=== PATIENT | male | born 2000 | race Two or more races ===

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

== ENCOUNTER 2022-02-08 15:30 | Outpatient (RCR) | payer OTHER, SELFPAY ==
--- NOTE | 2022-01-11 11:45 | PTOPEVAL ---
PHYSICAL THERAPY INITIAL EVALUATION. Thank you for referring Tobias Aranda to [facility].? The patient is scheduled to be seen for therapy? 2x/week for 4 weeks. Please review, sign, date and return this plan of care MADYSON. I agree with and certify that the following plan of care is medically necessary. Referring Physician Date Attending Provider: Derrek Guajardo MD *PT Outpatient Evaluation Start: 01/11/22 Evaluation Information Diagnosis Left shoulder pain Onset 1 month Subjective Information Pt states for about the last Query Text:As Reported By Patient/ month his left shoulder has Family been hurting, within the last week his right shoulder has started to hurt. He reports no known mechanism of injury, he states he did leg exercises the day before his shoulder started to hurt. He states he goes to the [employer] 5-6 days a week. He reports equal time working on chest/arms when compared to back/shoulders. Pt reports no pain at rest, slight pain with unweighted movements, and the most pain when he is exercising. Pain Assessment Self Report Pain Assessment Right Shoulder(s) Reported Pain Level 0 Pain Description Sharp Pain Frequency Acute,Intermittent Lowest Pain Intensity 0 Greatest Pain Intensity 7 Left Shoulder(s) Reported Pain Level 0 Pain Description Aching Pain Frequency Acute,Intermittent Lowest Pain Intensity 0 Greatest Pain Intensity 7 Upper Extremity Range of Motion Right Shoulder Flexion - Active 135 Shoulder Flexion - Passive 160 Shoulder Abduction - Active 140 Shoulder Medial Rotation - Passive 70 Shoulder Medial Rotation - Active T6 Shoulder Lateral Rotation - Active 80 Shoulder Lateral Rotation - Active T2 Left Shoulder Flexion - Active 140 Shoulder Flexion - Passive 160 Shoulder Abduction - Active 148 Shoulder Medial Rotation - Passive 70 Shoulder Medial Rotation - Active T4 Shoulder Lateral Rotation - Passive 80 Shoulder Lateral Rotation - Active T4 Upper Extremity Muscle Strength Testing Bilateral Shoulder Elevation - Upper Trapezius 5 Normal Shoulder Flexion Strength 4- Good - Shoulder Abduction Strength 4- Good - Shoulder Medial Rotation Strength 4+ Good + Shoulder Lateral Rotation Strength 4 Good Muscle Length Testi
--- NOTE | 2022-02-08 16:12 | PTOPEVAL ---
PHYSICAL THERAPY PROGRESS REPORT AND DISCHARGE NOTE. Thank you for referring Tobias Aranda to [facility].? The patient is scheduled to be discharged from skilled physical therapy services at this time. Please review, sign, date and return this plan of care MADYSON. I agree with and certify that the following plan of care is medically necessary. Referring Physician Date Attending Provider: Derrek Guajardo MD Evaluation Information Diagnosis Left shoulder pain Onset 2 month Subjective Information Pt states his shoulder is Query Text:As Reported By Patient/ doing pretty well. He states Family he is working out at about 80% of his previous capacity with only a little bit of discomfort. Pt states he will get some shoulder pain when his is doing bench press. He states this is about a 4/10, he reports only muscle soreness at rest. Pain Assessment Reported Pain Level 0 Pain Description Soreness Greatest Pain Intensity 4 Upper Extremity Range of Motion Scapular/ Shoulder Range of Motion Right Shoulder Flexion - Active 142 Shoulder Flexion - Passive 180 Shoulder Abduction - Active 140 Shoulder Medial Rotation - Passive 70 Shoulder Medial Rotation - Active T6 Shoulder Lateral Rotation - Active 80 Shoulder Lateral Rotation - Active T2 Left Shoulder Flexion - Active 155 Shoulder Flexion - Passive 180 Shoulder Abduction - Active 148 Shoulder Medial Rotation - Passive 70 Shoulder Medial Rotation - Active T4 Shoulder Lateral Rotation - Passive 80 Shoulder Lateral Rotation - Active T4 Upper Extremity Muscle Strength Testing Bilateral Shoulder Elevation - Upper Trapezius 5 Normal Shoulder Flexion Strength 4+ Good + Shoulder Abduction Strength 4+ Good + Shoulder Medial Rotation Strength 5 Normal Shoulder Lateral Rotation Strength 5 Normal Posture Posture Evaluation View Posterior Shoulder Posture Neutral Scapula Posture (L) Neutral,(R) Neutral Palpation Assessment Palpation none Special Tests-Upper Extremity Shoulder Special Tests Empty Can (supraspinatus) Test Negative Left,Negative Right Drop Arm Test Negative Left,Negative Right Speed's Test Negative Left,Negative Right Hawkin's Toni Test Negative Left,Negative Right Lift Off Test Negative Left,Negative Right PT Clinical Summary Tobais presents to therapy today for his progress report following 7 visits of therapy
== END 2022-02-09 11:21 | disposition home or self-care (01) ==
LOC: ANHPT 15:30
PROVIDERS: PCP Pediatrics; Visit Provider Emergency Medicine
DX: M25.512 Pain in left shoulder (principal)
CPT/HCPCS: 97110; 97112; 97140; 97161

== ENCOUNTER 2022-10-07 15:00 | Emergency (ER) | payer OTHER, SELFPAY ==
--- NOTE | 2022-10-07 15:08 | ED.URI ---
HPI - URI/Sore Throat General Chief Complaint: Upper Respiratory Infection Stated Complaint: sore throat, bodyaches, headache Time Seen by Provider: 10/07/22 15:10 Source: patient and RN notes reviewed Mode of arrival: ambulatory Limitations: no limitations History of Present Illness HPI Narrative: 22-year-old male for sore body aches started yesterday. He denies fever, chills sweats, cough, shortness of breath. Reports some rhinorrhea. Denies headache, nausea, vomiting MD elicited complaint: sore throat Related Data Allergies Allergy/AdvReac Type Severity Reaction Status Date / Time No Known Drug Allergies Allergy Mild Other Unverified 10/07/22 15:09 Review of Systems Review of Systems: CONSTITUTIONAL: Denies malaise, chills, sweats, or fever. EYES: Denies visual changes, redness, or discharge. ENT: Reports rhinorrhea, sore throat. Denies congestion, sinus pain, otalgia CARDIOVASCULAR: Denies chest pain, palpitations, or edema. RESPIRATORY: Denies cough. Denies dyspnea. GASTROINTESTINAL: Denies abdominal pain, nausea, vomiting, diarrhea SKIN: Denies rash or itching. MUSCULOSKELETAL: Reports myalgia. NEUROLOGIC: Denies headache. All systems reviewed & are unremarkable except as noted in HPI and below PMFSH Comments At time of signature, agree with nursing past medical, surgical, social and family history. There is no relevant family history pertinent to the presenting complaint Exam Narrative: GENERAL: Well-appearing, well-nourished, and in no acute distress. HEAD: Normocephalic EYES: PERRLA, conjunctivae clear ENT: Nares clear, clear discharge. Mucous membranes moist. TM pearly guzman with sharp light reflex bilaterally; no tragal tenderness. Oropharynx erythematous without lesions. Tonsils not enlarged and without exudate, no drooling, no hoarseness, no trismus, uvula midline. NECK: Supple. No lymphadenopathy CHEST: Clear to auscultation, breath sounds equal. No wheezing, rhonchi, rales, or stridor. No respiratory distress, speaks in full sentences. HEART: Regular rate and rhythm. No murmur heard. SKIN: Warm, dry, no rash. NEURO: Alert and oriented x3. PSYCH: Normal mood and affect Course Course Emergency Course: Patient is aware of diagnosis, understands and agrees to treatment plan. Anticipatory guidance given. Patient agrees to follow-up as directed and is aware of reasons to seek care at the emergency department. Portions of this record may have been created with voice recognition software Level of Care: Express Care Visit Vital Signs Vital signs: Reviewed. MDM - URI/Sore Throat MDM Narrative Medical decision making narrative: Differential diagnosis considered: Allison virus, strep pharyngitis, allergic rhinitis, upper respiratory tract infection, sinusitis, rhinosinusitis, nasopharyngitis. viral pharyngitis, otitis media, otitis externa, pneumonia, bronchitis, viral cough syndrome, viral syndrome, and influenza. Exam findings show no acute concerns or changes; patient is non-toxic appearing and is in no distress. Patient is appropriate for outpatient treatment and follow-up. Lab Data Attestation: I reviewed the patient's lab results. Critical Care Time Critical Care Time Critical Care Time: No Discharge Plan Discharge Clinical Impression: Upper respiratory infection Patient Disposition: Home, Self-Care Condition: Stable Instructions: Upper Respiratory Infection (ED) Additional Instructions: A throat culture will be sent to the laboratory for further testing. If the test is positive, you will receive a phone call within 48 hours and an appropriate antibiotic will be initiated at that time. Your symptoms are likely due to a viral illness, which is not treated with antibiotics. Viral symptoms can be present for up to a few weeks. -Alternate Tylenol and Motrin per package directions for fever or pain. -Antihistamine medication such as Benadryl at night and Zyrtec-D during the day can help
[2022-10-07 15:09] VITALS: BP 144/82; PULSE 71; RESP 16; TEMP 36.1; O2SAT 100
== END 2022-10-07 15:25 | disposition home or self-care (01) ==
PROVIDERS: Emergency Provider Nurse Practitioner; PCP Emergency Medicine
DX: J06.9 Acute upper respiratory infection, unspecified (principal)
CPT/HCPCS: 87081; 99213; G0463

== ENCOUNTER 2022-10-21 15:38 | Outpatient (CLI) | payer OTHER, SELFPAY ==
--- NOTE | ~2022-10-21 | XR_ITS ---
EXAMINATION: XR shoulder LT min 2V DATE: 10/21/2022 16:06 INDICATION: Left shoulder pain. TECHNIQUE: 4 views of left shoulder were obtained. COMPARISON: None. FINDINGS: Bone alignment is normal. No fracture. The glenohumeral joint is normal. There is mild acro mioclavicular joint osteoarthritis. IMPRESSION: 1. Mild left acromioclavicular joint osteoarthritis. Reviewed, dictated and finalized at location A. H [employer]ER
--- NOTE | ~2022-10-21 | XR_ITS ---
EXAMINATION: XR AC joint BI DATE: 10/21/2022 16:06 INDICATION: Left shoulder pain. TECHNIQUE: Anteroposterior views of the bilateral acromioclavicular joints without and with weights f or a total of 4 views were obtained. COMPARISON: None. FINDINGS: Bone alignment is normal. No fracture. There is mild osteoarthritis of the acromioclavicula r joints bilaterally. IMPRESSION: 1. Mild osteoarthritis of the acromioclavicular joints. Reviewed, dictated and finalized at location A. OL CAFETERIA COOK
== END 2022-10-21 15:39 | disposition home or self-care (01) ==
PROVIDERS: PCP Emergency Medicine; Visit Provider Emergency Medicine
DX: M25.512 Pain in left shoulder (principal); M19.012 Primary osteoarthritis, left shoulder; M19.011 Primary osteoarthritis, right shoulder
CPT/HCPCS: 73030; 73050

== ENCOUNTER 2022-11-23 15:30 | Outpatient (RCR) | payer OTHER, SELFPAY ==
--- NOTE | 2022-10-27 16:36 | PTOPEVAL1 ---
Assessment and note entered by Amanuel Boland, PT Evaluation Information Assessment Status Evaluation Diagnosis L shoulder pain Onset about a week ago Subjective Information Patient reports he was doing his workout and during a bench press he felt pain in the L shoulder as he was placing the rn bariatric on the rack. The pain was severe, but since then and now has been reduced to mild. He reports he was unable to take off his shirt without pain, now he can do without issue. Some exercises he does still bother him and he can pinpoint where it hurts. (the AC joint) also he feels like it is not in good position sometimes. Reported Pain Level Pain Score 2: Self Report Additional Pain Score Comments Reports was using IBU, but has not for a day or two. Assessment PT Clinical Summary Tobias is a 22 year old male coming into the clinic for L shoulder pain. Has S/S of infraspinatus strain which should recover well with minimal effort. Patient showed therapist his exercise routine and therapist instructed the patient that it is not a good idea to do any exercises to fatigue as form will suffer and it will cause more of these incidents. Gave exercises to work on scapular stabilizers and will continue to see patient to rehab infraspinatus and work on form with his other exercises. Manual and modalities as needed. Plan of Care Interventions Electrical Stimulation,Hot Pack/Cold Pack,Manual Therapy,Neuro Re-education,Patient/Caregiver Education,Therapeutic Activities,Therapeutic Exercise,Ultrasound Other Interventions taping PT Services Indicated Yes Treatment Frequency and 1 times a week for 4 weeks Duration These treatments will address the objective and functional deficits as defined above. The patient will be advanced safely and appropriately in order for the patient to progress towards his/her prior level of function. Additional exercises will be introduced and as well as a comprehensive home exercise program upon discharge, if needed, ?to ensure carryover of functional gains achieved in the clinic. This treatment plan has been reviewed and agreement upon by the patient.
--- NOTE | 2022-11-23 16:10 | PTOPDC ---
Assessment and note entered by Amanuel Boland, PT Evaluation Information Assessment Status Discharge Diagnosis Pain in left shoulder Onset about a week ago Subjective Information Patient reports he is not feeling pain at rest, pain felt when falling asleep on the L shoulder of 4/10. Has been holding off on overhead lifting ( Physical therapist gave okay to start, but reminders to not do anything to exhaustion.). Reported Pain Level Pain Score 0: Self Report Additional Pain Score Comments 4/10 worst this last week, did not stay in pain long. Assessment PT Clinical Summary Tobias has been coming to the clinic for 4 visits to deal with L shoulder pain. The patient has met all goals besides he still has mild pain with lying on the L shoulder. Has full strength and a negative lift test. Still needs to work on posture and not count on taping for a biofeedback. Patient also was asking about R knee pain that did not turn up any positive special tests for meniscal, MCL, LCL, ACL, or PCL injuries. Could potentially be a duke's cyst. Patient okay with discharge from skilled physical therapy. Plan of Care PT Services Indicated No Treatment Frequency and Discharged from skilled physical therapy. Duration
== END 2023-01-10 08:47 | disposition home or self-care (01) ==
LOC: ANHPT 15:30
PROVIDERS: PCP Emergency Medicine; Visit Provider Emergency Medicine
DX: M25.512 Pain in left shoulder (principal)
CPT/HCPCS: 97110; 97140; 97161

== ENCOUNTER 2023-02-08 12:44 | Outpatient (CLI) | payer OTHER, SELFPAY ==
--- NOTE | ~2023-02-08 | XR_ITS ---
EXAMINATION: XR fl inj shoulder LT - MR/CT DATE: 02/08/2023 14:02 INDICATION: Left shoulder pain TECHNIQUE: A time-out was performed to verify the patient's name, date of , and procedure to b e performed. The procedure including the risks, benefits, and alternatives was discussed with the pat ient. Risks discussed included bleeding and infection. The patient understood the risks and agreed to proceed. The skin overlying the rotator cuff interval of the left glenohumeral joint was prepped an d draped in usual sterile fashion. Anesthetic was administered with 1% lidocaine subcutaneously. A 22 G needle was advanced under fluoroscopic guidance into the joint. Injection of 1 mL of Omnipaque 240 confirmed intra-articular position of the needle. Subsequently, injectate consisting of 12 mL of 2:1:1 mixture of sterile saline:Omnipaque 240:1% lidocaine mixed 200:1 with 529 mg/mL Multihance barbara olinium contrast was injected with intra-articular position confirmed with intermittent fluoroscopy. The needle was removed and the entry site was cleaned and dressed. There were no immediate complicat ions. Fluoroscopy exposure time was 0.3 minutes. The total number of images was 147. FINDINGS: Real-time fluoroscopy demonstrates the needle in the left glenohumeral joint. IMPRESSION: 1. Successful left glenohumeral joint injection of dilute gadolinium contrast mixture subsequent MRI arthrogram which will be dictated separately. Reviewed, dictated and finalized at location A. IMPRESSION: 1. Successful left glenohumeral joint injection of dilute gadolinium contrast m ixture subsequent MRI arthrogram which will be dictated separately.
--- NOTE | ~2023-02-08 | MR_ITS ---
EXAMINATION: MR shoulder LT w con DATE: 02/08/2023 14:32 INDICATION: Left shoulder pain TECHNIQUE: Magnetic resonance imaging (MRI) of the left shoulder was performed following intra-artic ular gadolinium contrast injection and without intravenous contrast. Details of the glenohumeral join t injection have been dictated separately. Sequences included axial T2-weighted FS FSE, axial T1-mishel ghted FS FSE, coronal oblique T1-weighted FS FSE, coronal oblique T2-weighted FSE, sagittal T2-weight ed FS FSE, sagittal T1-weighted FSE, and ABER (abduction external rotation) T1-weighted FS FSE. COMPARISON: Radiographs dated 10/21/2022 FINDINGS: Coracoacromial arch: The acromion undersurface is minimally curved in morphology (type I-II). The coracoacromial ligament is normal. There is irregular cortical contour along the anterior and superior articular surface of t he distal clavicle with underlying marrow edema. The juxtaposed acromion appears normal. 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 Rotator cuff: The supraspinatus, infraspinatus and teres minor are normal. The subscapularis is normal. Normal rota tor cuff muscle bulk and signal. Biceps tendon, glenoid labrum and glenohumeral cartilage: Long head of the biceps tendon is intact. Glenoid labrum is normal. Glenohumeral cartilage is normal. Bones and other: Aside from subarticular marrow edema at the lateral head of the clavicle there is normal marrow signa l. No fracture or pathologic marrow replacing process. No abnormal fluid signal in the subacromial/tam bdeltoid bursa to suggest bursitis. IMPRESSION: 1. Isolated subarticular edema and irregularity of the overlying articular cortex at the lateral head of the clavicle with normal appearance to the juxtaposed acromion. Per discussion with the patient, the symptoms began after bench pressing but without a single discrete inciting traumatic event. Both the imaging findings and the provided clinical history would be most consistent with distal clavicula r osteolysis which can be seen in the setting of chronic microtrauma classically described with weigh t lifting. 2. Otherwise normal left shoulder MRI arthrogram with normal rotator cuff, biceps tendon, labrum and cartilage. Reviewed, dictated and finalized at location A. IMPRESSION: 1. Isolated subarticular edema and irregularity of the overlying articular aubree ex at the lateral head of the clavicle with normal appearance to the juxtaposed acromion. Per discussion with the patient, the symptoms began after bench pres sing but without a single discrete inciting traumatic event. Both the imaging f indings and the provided clinical history would be most consistent with distal clavicular osteolysis which can be seen in the setting of chronic microtrauma c lassically described with weight lifting. 2. Otherwise normal left shoulder MRI arthrogram with normal rotator cuff, sal ps tendon, labrum and cartilage.
== END 2023-02-08 12:45 | disposition home or self-care (01) ==
LOC: ANHIMG 12:50
PROVIDERS: PCP Emergency Medicine; Visit Provider Orthopaedic Surgery
DX: M25.512 Pain in left shoulder (principal); R60.9 Edema, unspecified
CPT/HCPCS: 23350; 73222; A9577; Q9966

== ENCOUNTER 2023-05-30 11:00 | Outpatient (RCR) | payer OTHER, SELFPAY ==
--- NOTE | 2023-05-05 10:10 | OPREHPOC ---
Outpatient Therapy Plan of Care This is a Multidisciplinary Plan of Care that may contain components documented by all disciplines (PT, OT, and ST.) PT Problem 1 PT Problem #1 Knowledge Deficit PT Goal 1 Goal [place] with HEP Target Visit 6 PT Problem 2 PT Problem #2 Impaired Strength PT Goal 1 Goal 5/5 ANJALI serratus anteriors and lower traps. Target Visit 6 PT Problem 3 PT Problem #3 Pain PT Goal 1 Goal decrease pain to 2/10 after lifting Target Visit 6
--- NOTE | 2023-05-05 10:10 | PTOPEVAL1 ---
Assessment and note entered by Amanuel Boland, PT Evaluation Information Assessment Status Evaluation Diagnosis L distal clavicular osteolysis Subjective Information Patient reports that he is having issues doing any weight lifting that requires a pushing motion from his L shoulder. He can do rows, biceps curls, and lat pull downs, but not do shoulder presses or bench presses without pain. Patient also feels like when he is walking sometimes his L shoulder blade will not be stable and feel erratic requiring him to adjust his posture multiple times while walking. Patient has come to this clinic twice for similar situations and has received injections he feels does not help him. Assessment PT Clinical Summary Mr. Aranda is a 22 year old male coming into the clinic with a diagnosis of L distal clavicular osteolysis. Patient has no significant decrease in range of motion or strength compared to the R side. Some decreased scapular strength and self reported decreased proprioception of the scapula. Physical therapy will work with the patient to improve scapular stabilization and biofeedback. Along with education and construction of a exercise routine that will work for the patient's goals while minimizing pain in the L shoulder. Plan of Care Interventions Electrical Stimulation,Gait Training,Hot Pack/Cold Pack,Manual Therapy,Neuro Re-education,Patient/ Caregiver Education,Therapeutic Activities, Therapeutic Exercise,Ultrasound Other Interventions taping, cupping, IASTM PT Services Indicated Yes Treatment Frequency and 1-2X/wk for 4 weeks Duration These treatments will address the objective and functional deficits as defined above. The patient will be advanced safely and appropriately in order for the patient to progress towards his/her prior level of function. Additional exercises will be introduced and as well as a comprehensive home exercise program upon discharge, if needed, ?to ensure carryover of functional gains achieved in the clinic. This treatment plan has been reviewed and agreement upon by the patient.
--- NOTE | 2023-05-30 11:59 | PTOPDC ---
Assessment and note entered by Amanuel Boland, PT Evaluation Information Assessment Status Evaluation Diagnosis L shoulder pain, osteolysis acromial clavicle Subjective Information Patient reports he still gets pain, but his scapula feels in a better position and is controlled better. Also reports he is doing some push exercises with low weight and high reps without pain. Reported Pain Level Pain Score 0: Self Report Additional Pain Score Comments currently no pain, but reports his pain can get up to a 7/10 when he sleeps on his shoulder wrong. Assessment PT Clinical Summary Mr. Aranda is a 22 year old male coming into the clinic with L shoulder pain and osteolysis acromial clavicle. He has met his scapular strengthening goal, but not his pain goal. Patient feels fine being discharged working on his HEP. Plan of Care PT Services Indicated No
== END 2023-05-30 13:11 | disposition home or self-care (01) ==
LOC: ANHPT 11:00
PROVIDERS: PCP Emergency Medicine; Visit Provider Orthopaedic Surgery
DX: M25.512 Pain in left shoulder (principal); M89.512 Osteolysis, left shoulder; G89.29 Other chronic pain
CPT/HCPCS: 97110; 97112; 97161

== ENCOUNTER 2024-02-28 06:02 | Emergency (ER) | payer OTHER, SELFPAY ==
[2024-02-28 06:02] VITALS: BP 145/84; PULSE 82; RESP 14; TEMP 37.3; O2SAT 99
[2024-02-28 06:47] LABS: Strep Group A RT-PCR NOT DETECTED (Negative)
[2024-02-28 06:58] LABS: Influenza A QL RT-PCR Negative (Negative); Influenza B QL RT-PCR Negative (Negative); RSV RNA, RT-PCR Negative (Negative); SARS-CoV-2 RNA PCR Negative (Negative)
--- NOTE | 2024-02-28 07:43 | ED.FEVER ---
HPI - Fever General Chief Complaint: Fever Stated Complaint: throat pain, fever Time Seen by Provider: 02/28/24 06:54 History of Present Illness HPI Narrative: 23-year-old male presenting emergency department for evaluation of sore throat. Patient states he began having a sore throat on Tuesday and began having a low-grade fever on Tuesday. Patient states the fever was as high as 100.6. Patient has been taking Tylenol for fever control. States the Tylenol has not helped throat. Patient denies any sick contacts seasonal allergies or postnasal drip. Related Data Allergies Allergy/AdvReac Type Severity Reaction Status Date / Time No Known Drug Allergies Allergy Mild Other Unverified 10/07/22 15:09 Review of Systems Review of Systems: All systems reviewed & are unremarkable except as noted in HPI and below Exam Narrative: APPEARANCE: Well appearing, no pain, no distress, well-nourished. HEAD: normocephalic, atraumatic. EYES: PERRLA/EOMI, conjunctivae clear. NOSE: Normal no drainage EARS:TMS clear with good light reflex. THROAT: Normal posterior pharynx no exudate, no erythema, no swelling, no peritonsillar abscess and no retropharyngeal abscess or swelling NECK: Supple. No adenopathy, no masses. RESPIRATORY: Airway patent, respirations nonlabored. Clear to auscultation bilaterally, no rales, rhonchi, wheezing. CARDIOVASCULAR: Regular rate and rhythm without murmurs rubs or gallops. ABDOMINAL: Soft, nontender, nondistended, normal bowel sounds MUSCULOSKELETAL: Moves all extremities. Strength/ROM intact, No edema, No calf tenderness. NEURO: Alert. Cranial nerves II through XII intact. Grossly intact SKIN: Warm, dry. Normal Color Course Vital Signs Vital signs: Vital Signs Temperature 99.2 F 02/28/24 06:02 Pulse Rate 82 02/28/24 06:02 Respiratory Rate 14 02/28/24 06:02 Blood Pressure 145/84 H 02/28/24 06:02 Pulse Oximetry 99 02/28/24 06:02 Oxygen Delivery Room Air 02/28/24 06:02 Temperature 99.2 F 02/28/24 06:02 Pulse Rate 82 02/28/24 06:02 Respiratory Rate 14 02/28/24 06:02 Blood Pressure 145/84 H 02/28/24 06:02 Pulse Oximetry 99 02/28/24 06:02 Oxygen Delivery Room Air 02/28/24 06:02 MDM - Fever MDM Narrative Medical decision making narrative: 23-year-old male present to the ED for evaluation of sore throat. Patient was negative for influenza RSV and for COVID. Patient's strep test was also negative. Normal posterior pharynx. Suspect viral etiology. Patient was treated with a dose of dexamethasone and advised to take Tylenol and ibuprofen for pain control along with symptomatic treatment at home. Patient was encouraged of close follow-up with his primary care physician. Differential Diagnosis Differential diagnosis: Likely viral infection and other (Peritonsillar abscess, retropharyngeal abscess, sore throat, postnasal drip, viral etiology) Lab Data Labs: Lab Results 02/28/24 Range/Units 06:15 Influenza A (RT-PCR) Negative (Negative) Influenza B (RT-PCR) Negative (Negative) RSV (RT-PCR) Negative (Negative) SARS-CoV-2 RNA (RT-PCR) Negative (Negative) Group A Strep (PCR) Not detected (Negative) Discharge Plan Discharge Clinical Impression: Sore throat Patient Disposition: Home, Self-Care Condition: Stable Instructions: Antibiotic Form, Pharyngitis (ED) Additional Instructions: Tylenol and ibuprofen for fever and symptom control. Symptomatic treatments as directed. Have close follow-up with your primary care physician. Prescriptions: No Action cetirizine-pseudoephedrine [Zyrtec-D] 5-120 mg tablet extended release 12 hr 1 tablet PO Q12H PRN (Reason: nasal congestion) Qty: 12 0RF Follow-up/Referrals: Derrek Guajardo MD [Primary Care Provider] -
== END 2024-02-28 07:54 | disposition home or self-care (01) ==
PROVIDERS: Emergency Medicine; Emergency Provider Emergency Medicine; PCP Emergency Medicine
DX: J02.9 Acute pharyngitis, unspecified (principal); Z20.822 Contact with and (suspected) exposure to COVID-19
CPT/HCPCS: 87637; 87651; 97110; 97140; 99283

== ENCOUNTER 2024-04-16 15:30 | Outpatient (RCR) | payer OTHER, SELFPAY ==
--- NOTE | 2024-02-20 10:05 | PTOPEVAL1 ---
Assessment and note entered by Dipak Colon, PT Evaluation Information Assessment Status Evaluation Diagnosis Arthrosis of left AC joint, Shoulder pain Onset 2021 Subjective Information Reports that his shoulder constantly feels inflamed. 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 Denies pain past elbow or any headaches at this time. He works out 5 days a week. Reports some discomfort at night when pressure on shoulder. Some minor numbness after a workout but not consistent. Reports some inconsistent popping and clicking that is non- painful. Reported Pain Level Pain Score 0: Self Report Assessment PT Clinical Summary Patient presenting with shoulder instability and weakness isolated in supraspinatus and periscapular musculature. Patient will benefit from skilled therapy to address these deficits starting with spine out mobility and scapular stabilization to gross dyskinesia improvement. Plan of Care Interventions Electrical Stimulation,Hot Pack/Cold Pack,Manual Therapy,Neuro Re-education,Therapeutic Activities, Therapeutic Exercise PT Services Indicated Yes Treatment Frequency and 2x/week for 8 visits Duration These treatments will address the objective and functional deficits as defined above. The patient will be advanced safely and appropriately in order for the patient to progress towards his/her prior level of function. Additional exercises will be introduced and as well as a comprehensive home exercise program upon discharge, if needed, ?to ensure carryover of functional gains achieved in the clinic. This treatment plan has been reviewed and agreement upon by the patient.
--- NOTE | 2024-02-20 10:06 | OPREHPOC ---
Outpatient Therapy Plan of Care This is a Multidisciplinary Plan of Care that may contain components documented by all disciplines (PT, OT, and ST.) PT Problem 1 PT Problem #1 Knowledge Deficit PT Goal 1 Goal [place] with HEP Target Visit 4 PT Problem 2 PT Problem #2 Impaired Strength PT Goal 1 Goal Improve meggan middle trapezius strength to 4+/5 to improve scapular stabilization with lifting activity Target Visit 8 PT Goal 2 Goal Improve meggan lower trapezius strength to 4+/5 to improve scapular stabilization with lifting activity Target Visit 8 PT Problem 3 PT Problem #3 Impaired Strength PT Goal 1 Goal Improve L shoulder flexion strength to 5/5 to improve lifting strength through scapular out strengthening program Target Visit 8 PT Problem 4 PT Problem #4 Impaired Functional Mobil PT Goal 1 Goal Patient will demonstrate ability to perform T lift of 5# without scapular winging of left shoulder indicating proper serratus engagement Target Visit 8
--- NOTE | 2024-03-22 10:54 | OPREHPOC ---
Outpatient Therapy Plan of Care This is a Multidisciplinary Plan of Care that may contain components documented by all disciplines (PT, OT, and ST.) PT Problem 1 PT Problem #1 Knowledge Deficit PT Goal 1 Goal [place] with HEP Target Visit 4 Progress Met PT Problem 2 PT Problem #2 Impaired Strength PT Goal 1 Goal Improve meggan middle trapezius strength to 4+/5 to improve scapular stabilization with lifting activity Target Visit 12 Progress Partially Met PT Goal 2 Goal Improve meggan lower trapezius strength to 4+/5 to improve scapular stabilization with lifting activity Target Visit 12 Progress Partially Met PT Problem 3 PT Problem #3 Impaired Strength PT Goal 1 Goal Improve L shoulder flexion strength to 5/5 to improve lifting strength through scapular out strengthening program Target Visit 12 Progress Partially Met PT Problem 4 PT Problem #4 Impaired Functional Mobil PT Goal 1 Goal Patient will demonstrate ability to perform T lift of 5# without scapular winging of left shoulder indicating proper serratus engagement Target Visit 12 Progress Partially Met
--- NOTE | 2024-03-22 10:54 | PTOPPROG ---
Assessment and note entered by Dipak Colon, PT Evaluation Information Assessment Status Progress Diagnosis Arthrosis of left AC joint, Shoulder pain Onset 2021 Subjective Information Reports that he does not feel he has seen a lot of progress at this time. Denies pain with running recently. Denies any numbness at this time as well . Overall does feel camilo. Patient would like to try dry needling and continue therapy. Assessment PT Clinical Summary Patient has seen improvement in shoulder strength and continues to show functional shoulder ORM at this time. Continues to have some functional weakness evidenced through objective measures at this time. Will continue to benefit from skilled therapy to meet retirement strength and stability goals. Plan of Care Interventions Electrical Stimulation,Hot Pack/Cold Pack,Manual Therapy,Neuro Re-education,Therapeutic Activities, Therapeutic Exercise PT Services Indicated Yes Treatment Frequency and 2x/week for 8 visits Duration These treatments will address the objective and functional deficits as defined above. The patient will be advanced safely and appropriately in order for the patient to progress towards his/her prior level of function. Additional exercises will be introduced and as well as a comprehensive home exercise program upon discharge, if needed, ?to ensure carryover of functional gains achieved in the clinic. This treatment plan has been reviewed and agreement upon by the patient.
--- NOTE | 2024-04-16 16:11 | PTOPDC ---
Assessment and note entered by Mirtha Magaña, PT Discharge Report Assessment Status Discharge Diagnosis Arthrosis of left AC joint, Shoulder pain Onset 2021 Subjective Information am doing workouts, but not any pushing motions- press ups with arm; returned to playing soccer; doing all the home exercises Reported Pain Level Pain Score Self Report Additional Pain Score Comments pain range in the past week 0-7/10; anterior shoulder A-C joint or posterior shoulder; ache decrease with ice; increase with work out, wake up after sleeping wrong Assessment PT Clinical Summary Tobias has received a total of 12 PT sessions. Compared to the last progress report: increase strength of L shoulder- scapular complex with good stability with exercises; he reports pain range of 0-7/10, with pain increase with pushing motions and weights with L arm; He has returned to playing soccer without any problems and fitness exercises at the gym, except pushing weights. He was able to perform the therapy exercises without pain reported. With full push ups, performed 4 reps and stop due to arm tired, did not have any pain. Education completed for HEP and position/posture with exercises. The goals were achieved. He expressed concern about pain over A-C joint of /10. Discussed with him having a follow up appointment with dr. [facility]. He is to continue with his HEP and strengthening. Plan of Care PT Services Indicated No
== END 2024-04-17 10:17 | disposition home or self-care (01) ==
LOC: ANHPT 15:30
PROVIDERS: PCP Emergency Medicine; Visit Provider Orthopaedic Surgery Sports Medicine
DX: M19.012 Primary osteoarthritis, left shoulder (principal)
CPT/HCPCS: 97110; 97140; 97161; 97530; 99199